=== PATIENT | male | born 1940 | race Caucasian/White ===

== ENCOUNTER 2019-07-14 07:21 | Inpatient (IN) | payer MEDICARE, BC ==
[~2019-07-14 07:21] MED LIST: Buffered Lidocaine 1% SYRIN* 1 ML/SYRINGE INTRADERM ONE; Lactated Ringers 1000 ML Bag* 1,000 ML IV SCH
--- OUTSIDE RECORDS SUMMARY | 2019-07-14 07:25 | XMS REPORT | Continuity of Care Document ---
:1940 External Reference #:[id number] Author Name Cathy Gilliland Care Team Providers Name Role Phone Benjamin Gutierrez MD Care Team Information Manager Performance Improvement [phone] Care Team Information Manager Performance Improvement [phone] Matthew Parkinson Care Team Information Manager Performance Improvement [phone] - Adult Care Team Information Manager Performance Improvement [phone] Reconstructive Orthopaedic Surgery Problems Active Problems Provider Date Benign essential hypertension Miller Griffith MD Onset: 11/30/2005 Aneurysm of thoracic aorta Vita Hawthorne MD Onset: 12/16/2013 Paroxysmal ventricular tachycardia Vita Hawthorne MD Onset: 12/16/2013 Paroxysmal atrial fibrillation Vita Hawthorne MD Onset: 12/22/2014 Note: 2014 Essential hypertension Daysi Hardwick, RN [place] [employer] Onset: 12/29/2015 Social History Type Date Description Comments Sex Unknown Tobacco Use Start: Unknown Never Smoked Cigarettes quitted 30yr ago, smoking 20 yrsX 1ppd ETOH Use Consumes liquor 2 times 2-3 beers/wine per day during social events 2-3 shots of vodhka/whisky qHS Tobacco Use Start: Unknown End: Patient is a former Unknown smoker Smoking Status Reviewed: 06/19/19 Patient is a former smoker Enjoy Exercising Enjoys Exercising Exercise Type/Frequency Exercises regularly Not as active as he was due to left ankle pain. Allergies, Adverse Reactions, Alerts Active Allergies Reaction Severity Comments Date Coumadin rash 12/16/2013 Inactive Allergies NKDA 12/21/2005 Medications Active Medications SIG Qnty Indications Ordering Provider Date Amlodipine/Olmesarta one tab daily for 90tabs I10 Daysi Hardwick 2018 n Medoxomil blood pressure C, RN [place] 5-20mg Tablets Metoprolol Succinate Take 1 Tablet AT 90tabs I48.2 Daysi Hardwick 2016 ER Bedtime C, RN MS VICKERS 50mg Tablets ER 24HR Pradaxa Take 1 Capsule 180caps I48.1 Daysi Hardwick 12/22/2014 150mg Twice Daily C, RN [place] Capsules I48.2 History Medications Amlodipine Besylate 1 by mouth every day 90tabs I10 Daysi Hardwick 2018 - Edison RN MS VICKERS 03/25/2019 5mg Tablets Boostrix ,5 cubic centimeters, .500ml Z23 Daysi Hardwick 01/09/2019 - intramuscular x 1 C, RN [place] V[place] 03/05/2019 5-2.5-18.5LF-mcg/0. injection 5 Suspension Medications Administered in Office Medication SIG Qnty Indications Ordering Provider Date Depo Medrol 20 MG Miller Griffith MD 11/29/2000 Injection Immunizations CPT Code Status Date Vaccine Lot # [id number] Given 02/09/2019 Tdap (Adacel) Ages 7 And Above Only 27458 Given 01/09/2019 Pneumococcal 23 Immunization Adult Or [id number] Immunosuppressed Patient 12527 Given 07/11/2018 Influenza Vac, Quadrivalent, Split, 0.5mL [id number] Dosage, Im Use 81097 Given 07/12/2017 Influenza Vac, Quadrivalent, Split, 0.5mL [id number] Dosage, Im Use 61135 Given 09/02/2016 Influenza Vac, Quadrivalent, Split, 0.5mL Dosage, Im Use [id number] Given 07/29/2015 Fluzone Trivalent Immunization 04213 Given 12/22/2014 Prevnar 13 Pneumococal Conjugate Vaccine [id number] 32531 Given 10/02/2004 Afluria Or Fluvirin Flu Vac Intramuscular Vital Signs Date Vital Result Comment 06/19/2019 9:53am Weight 270.00 lb Heart Rate 101 /min 72 BP Systolic 104 mmHg BP Diastolic 69 mmHg Height 72 inches 6'0" BMI (Body Mass Index) 36.6 kg/m2 04/03/2019 12:58pm Weight 276.25 lb Heart Rate 81 /min BP Systolic 114 mmHg BP Diastolic 66 mmHg Height 72 inches 6'0" BMI (Body Mass Index) 37.5 kg/m2 Results Test Date Facility Test Result H/L Range Note CBC with Auto Diff-fcmg 06/19/2019 [facility] WBC 5.8 K/uL 4.1-11.0 RBC 3.53 M/uL Low 4.60-6.10 Hemoglobin 12.2 gm/dL Low 13.5-18.0 Hematocrit 36.0 % Low 41.0-53.0 MCV 101.9 fL High 80.0-97.0 MCH 34.6 pg High 27.0-32.0 MCHC 34.0 g/dL 32.0-36.0 RDW 14.3 % 11.5-14.5 PLT Count 196 K/ul 140-400 MPV 8.0 FL 7.1-10.7 Neutrophil 65.3 % 35.0-75.0 Lymphocyte 21.7 % 16.0-52.0 Monocyte 10.6 % High 2.0-10.0 Eosinophil 1.4 % 0.0-5.0 Basophil 1.0 % 0.0-4.0 Abs Neutrophils 3.8 K/uL 2.1-8.0 Abs Lymphocytes 1.3 K/uL 0.8-5.5 Abs Monocytes 0.6 K/uL 0.1-1.0 Abs Eosinophils 0.1 K/uL 0.0-0.5 Abs Basophils 0.1 K/uL 0.0-0.3 Comprehensive Met Panel-[facility]CMG 06/19/2019 [facility] Sodium 141 mmol/L 135- 146 1 Potassium 4.5 mmol/L 3.5-5.2 Chloride# 104 mmol/L 97-110 2 Carbon Dioxide 27 mmol/L 24-34 Calcium 9.3 mg/dL 8.5-10.5 3 Glucose 97 mg/dL 70-105 BUN 23 mg/dL 6-26 Creatinine 1.1 mg/dL 0.5-1.4 Total Protein 6.2 g/dL 6.0-8.0 Albumin 4.1 g/dL 3.6-4.9 Globulin 2.1 g/dL 2.0-3.5 A/G Ratio 2.0 Ratio 1.0-2.2 Total Bilirubin 1.0 mg/dL 0.1-1.3 Alkaline Phosphatase 82 U/L 24-140 Alt 37 U/L 3-42 Ast 27 U/L 8-42 Anion Gap 10 mmol/L 5-15 4 Female Egfr 46 Low >60 5 Male Egfr 61 >60 6 Laboratory test 06/19/2019 [facility] PSA 3.150 ng/mL 0.000-4.000 7 finding Hemoglobin A1c 06/19/2019 [facility] Hemoglobin A1c 6.4 % High 4.1-5.9 Estimated Average Glucose Calc 137 mg/dL 71-140 Laboratory test finding 06/19/2019 [facility] Magnesium 1.7 mg/dL 1.5-2.7 Comprehensive Met Panel-[facility]CMG 03/24/2019 [facility] Sodium 140 mmol/L 135- 146 8, 9 Potassium 4.8 mmol/L 3.5-5.2 Chloride# 105 mmol/L 97-110 10 Carbon Dioxide 28 mmol/L 24-34 Calcium 9.2 mg/dL 8.5-10.5 11 Glucose 128 mg/dL High 70-105 BUN 22 mg/dL 6-26 Creatinine 0.8 mg/dL 0.5-1.4 Total Protein 6.3 g/dL 6.0-8.0 Albumin 4.1 g/dL 3.6-4.9 Globulin 2.2 g/dL 2.0-3.5 A/G Ratio 1.9 Ratio 1.0-2.2 Total Bilirubin 1.1 mg/dL 0.1-1.3 Alkaline Phosphatase 105 U/L 24-140 Alt 32 U/L 3-42 Ast 30 U/L 8-42 Anion Gap 7 mmol/L 5-15 12 Female Egfr 69 >60 13 Male Egfr 85 >60 14 Hemoglobin A1c 03/24/2019 [facility] Hemoglobin A1c 5.9 % 4.1-5.9 Estimated Average Glucose Calc 123 mg/dL 71-140 CBC with Auto Diff-fcmg 03/24/2019 [facility] WBC 4.5 K/uL 4.1-11.0 RBC 3.99 M/uL Low 4.60-6.10 Hemoglobin 13.7 gm/dL 13.5-18.0 Hematocrit 39.8 % Low 41.0-53.0 MCV 99.8 fL High 80.0-97.0 MCH 34.4 pg High 27.0-32.0 MCHC 34.5 g/dL 32.0-36.0 RDW 13.5 % 11.5-14.5 PLT Count 186 K/ul 140-400 MPV 8.0 FL 7.1-10.7 Neutrophil 53.9 % 35.0-75.0 Lymphocyte 30.3 % 16.0-52.0 Monocyte 11.8 % High 2.0-10.0 Eosinophil 2.7 % 0.0-5.0 Basophil 1.3 % 0.0-4.0 Abs Neutrophils 2.4 K/uL 2.1-8.0 Abs Lymphocytes 1.4 K/uL 0.8-5.5 Abs Monocytes 0.5 K/uL 0.1-1.0 Abs Eosinophils 0.1 K/uL 0.0-0.5 Abs Basophils 0.1 K/uL 0.0-0.3 Hemoglobin A1c 01/09/2019 [place] Hemoglobin A1c 6.2 % High 4.1-5.9 Estimated Average Glucose Calc 131 mg/dL 71-140 Comprehensive Met Panel-FCMG 01/09/2019 [place] Sodium 142 mmol/L 135- 146 15 Potassium 4.4 mmol/L 3.5-5.2 Chloride# 108 mmol/L 97-110 16 Carbon Dioxide 25 mmol/L 24-34 Glucose 119 mg/dL High 70-105 BUN 22 mg/dL 6-26 Creatinine 0.8 mg/dL 0.5-1.4 Calcium 9.5 mg/dL 8.5-10.2 Total Protein 6.2 g/dL 6.0-8.0 Albumin 4.4 g/dL 3.6-4.9 Globulin 1.8 g/dL Low 2.0-3.5 A/G Ratio 2.4 Ratio High 1.0-2.2 Total Bilirubin 0.7 mg/dL 0.1-1.3 Alkaline Phosphatase 108 U/L 24-140 Alt 31 U/L 3-42 Ast 27 U/L 8-42 Anion Gap 9 mmol/L 5-15 17 Rox Egfr >60 >60 18 Non Rox Egfr >60 >60 19 Lipid 01/09/2019 [place] Cholesterol 163 mg/dL 50-199 Triglycerides 68 mg/dL 30-200 HDL 59 mg/dL 29-71 20 Chol/ HDL Ratio 2.8 ratio Low 4.0-6.7 VLDL 14 mg/dL 2-29 LDL (Calc) 91 mg/dL 20 21 1 Updated reference range on new analyzer 2 Updated reference range on new analyzer 3 Updated reference range 02-11-2019 4 Updated Reference Range 5 Concerning GFR Guidelines for Americans: Normal function or mild renal disease, if clinically at risk: >/= 60 mL/min Moderately decreased: 30-59 Severely decreased: 15-29 Renal failure: <15 There is reduced accuracy above 60ml/min/1.73 m squared, but the numeric value may be clinically useful in the near 60 range 6 Concerning GFR Guidelines: Normal function or mild renal disease, if clinically at risk: >/= 60 mL/min Moderately decreased: 30-59 Severely decreased: 15-29 Renal failure: <15 There is reduced accuracy above 60ml/min/1.73 m squared, but the numeric value may be clinically useful in the near 60 range Glomerular Filtration Rate (GFR) is estimated based on the CKD-EPI equation, which assumes a steady state for creatinine as recommended by the National Kidney Disease Education Program in conjunction with the National Institutes of Health and the National Kidney Foundation. Clinical conditions in which it may be necessary to measure GFR by using clearance methods include extremes of age and body size, severe malnutrition or obesity, diseases of skeletal muscle, paraplegia or quadriplegia, vegetarian diet, rapidly changing kidney function, and calculation of the dose of potentially toxic drugs that are excreted by the kidneys. 7 Beginning 12/09/06 PSA values assayed at [facility] uses chemiluminescence methodology manufactured by [employer] for use on the DXI analyzer. Values obtained with different assay methods or kits can not be used interchangeably. Serum PSA measurement is not an absolute test for malignancy. The PSA value should be used in conjunction with information available from clinical evaluation and other diagnostic procedures. 8 This sample is drawn by:[facility]. 9 Updated reference range on new analyzer 10 Updated reference range on new analyzer 11 Updated reference range 02-11-2019 12 Updated Reference Range 13 Concerning GFR Guidelines for Americans: Normal function or mild renal disease, if clinically at risk: >/= 60 mL/min Moderately decreased: 30-59 Severely decreased: 15-29 Renal failure: <15 There is reduced accuracy above 60ml/min/1.73 m squared, but the numeric value may be clinically useful in the near 60 range 14 Concerning GFR Guidelines: Normal function or mild renal disease, if clinically at risk: >/= 60 mL/min Moderately decreased: 30-59 Severely decreased: 15-29 Renal failure: <15 There is reduced accuracy above 60ml/min/1.73 m squared, but the numeric value may be clinically useful in the near 60 range Glomerular Filtration Rate (GFR) is estimated based on the CKD-EPI equation, which assumes a steady state for creatinine as recommended by the National Kidney Disease Education Program in conjunction with the National Institutes of Health and the National Kidney Foundation. Clinical conditions in which it may be necessary to measure GFR by using clearance methods include extremes of age and body size, severe malnutrition or obesity, diseases of skeletal muscle, paraplegia or quadriplegia, vegetarian diet, rapidly changing kidney function, and calculation of the dose of potentially toxic drugs that are excreted by the kidneys. 15 Updated reference range on new analyzer 16 Updated reference range on new analyzer 17 Updated Reference Range 18 Concerning GFR Guidelines for Americans: Normal function or mild renal disease, if clinically at risk: >/= 60 mL/min Moderately decreased: 30-59 Severely decreased: 15-29 Renal failure: <15 19 Concerning GFR Guidelines: Normal function or mild renal disease, if clinically at risk: >/= 60 mL/min Moderately decreased: 30-59 Severely decreased: 15-29 Renal failure: <15 Glomerular Filtration Rate (GFR) is estimated based on the MDRD equation, which assumes a steady state for creatinine as recommended by the National Kidney Disease Education Program in conjunction with the National Institutes of Health and the National Kidney Foundation. Clinical conditions in which it may be necessary to measure GFR by using clearance methods include extremes of age and body size, severe malnutrition or obesity, diseases of skeletal muscle, paraplegia or quadriplegia, vegetarian diet, rapidly changing kidney function, and calculation of the dose of potentially toxic drugs that are excreted by the kidneys. 20 Per NCEP ATP III Guidelines: Results lower than 40 mg/dL are suggestive of increased risk for coronary artery disease. Results > or = to 60 mg/dL are considered a negative risk factor. 21 Per NCEP ATP III Guidelines: Normal Population <130 Patients with medical conditions: CHD/DM Optimal: <100 Borderline high: 130-159 High: 160-189 Very high: >189 Procedures Date Code Description Status 06/19/2019 02516 ECHO Transthoracis 2D W Spectral Doppler Completed 06/19/2019 27478 Electrocardiogram Complete Completed 02/23/2015 18307409 Colonoscopy Completed 01/05/2010 [id number] Colonoscopy Completed Medical Devices Description No Information Available Encounters Type Date Location Provider Dx Diagnosis Office Visit 06/19/2019 Daysi Gurrola, Z01.818 Encounter for other 10:20a RN [place] [employer] preprocedural examination I34.0 Nonrheumatic mitral (valve) insufficiency I10 Essential (primary) hypertension I48.1 Persistent atrial fibrillation E66.9 Obesity, unspecified Z12.5 Encounter for screening for malignant neoplasm of prostate R73.01 Impaired fasting glucose Z68.36 Body mass index (BMI) 36.0-36.9, adult Office Visit 04/03/2019 1:00p Daysi Gurrola I10 Essential ( primary) RN [facility] hypertension R73.01 Impaired fasting glucose Office Visit 03/05/2019 8:20a Daysi Gurrola, E66.9 Obesity, unspecified RN MS [facility] I10 Essential (primary) hypertension I48.2 Chronic atrial fibrillation M25.551 Pain in RIGHT hip M25.559 Pain in unspecified hip Z68.37 Body mass index (BMI) 37.0-37.9, adult Office Visit 01/09/2019 8:20a Daysi Gurrola, Z00.00 Encntr for general RN [place] [employer] adult medical exam w/o abnormal findings R73.01 Impaired fasting glucose I10 Essential (primary) hypertension M25.551 Pain in RIGHT hip E55.9 Vitamin D deficiency, unspecified Z23 Encounter for immunization D64.9 Anemia, unspecified Z13.31 Encounter for screening for depression Z68.37 Body mass index (BMI) 37.0-37.9, adult Assessments Date Code Description Provider 06/19/2019 I10 Essential (primary) hypertension [facility] 06/19/2019 Z01.818 Encounter for other preprocedural Dayis Hardwick RN [employer] examination 06/19/2019 I34.0 Nonrheumatic mitral (valve) [facility] insufficiency 06/19/2019 I34.0 Nonrheumatic mitral (valve) Daysi Hardwick RN [employer] insufficiency 06/19/2019 I48.1 Persistent atrial fibrillation [facility] 06/19/2019 I10 Essential (primary) hypertension Daysi Hardwick, RN [facility] 06/19/2019 I48.1 Persistent atrial fibrillation Daysi Hardwick, RN [facility] 06/19/2019 E66.9 Obesity, unspecified Daysi Hardwick, RN [facility] 06/19/2019 Z12.5 Encounter for screening for malignant Daysi Hardwick, PRICE [facility] neoplasm of prostate 06/19/2019 R73.01 Impaired fasting glucose Daysi Hardwick, PRICE [facility] 06/19/2019 Z68.36 Body mass index (BMI) 36.0-36.9, Daysi Hardwick, RN [facility] adult 06/19/2019 I34.0 Nonrheumatic mitral (valve) [facility] insufficiency 06/19/2019 I10 Essential (primary) hypertension [facility] 06/19/2019 Z12.5 Encounter for screening for malignant [facility] neoplasm of prostate 06/19/2019 R73.01 Impaired fasting glucose [facility] 06/19/2019 I48.1 Persistent atrial fibrillation [facility] 04/03/2019 I10 Essential (primary) hypertension Daysi Hardwick RN [facility] 04/03/2019 R73.01 Impaired fasting glucose Daysi Hardwick, PRICE [facility] 03/24/2019 D64.9 Anemia, unspecified Rosetta Yarbrough MD 03/24/2019 I10 Essential (primary) hypertension [facility] 03/24/2019 I10 Essential (primary) hypertension Rosetta Yarbrough MD 03/24/2019 R73.01 Impaired fasting glucose [facility] 03/24/2019 R73.01 Impaired fasting glucose Rosetta Yarbrough MD 03/24/2019 Z68.37 Body mass index (BMI) 37.0-37.9, [facility] adult 03/24/2019 Z68.37 Body mass index (BMI) 37.0-37.9, Rosetta Yarbrough MD adult 03/24/2019 D64.9 An[facility], [facility] 03/05/2019 E66.9 Obesity, unspecified Daysi Hardwick, RN [facility] 03/05/2019 I10 Essential (primary) hypertension Daysi Hardwick RN [facility] 03/05/2019 I48.2 Chronic atrial fibrillation Daysi Hardwick, PRICE [facility] 03/05/2019 M25.551 Pain in RIGHT hip Daysi Hardwick, PRICE [facility] 03/05/2019 M25.559 Pain in unspecified hip Daysi Hardwick, PRICE [facility] 03/05/2019 Z68.37 Body mass index (BMI) 37.0-37.9, Daysi Hardwick, PRICE [facility] adult 01/09/2019 Z00.00 Encounter for general adult medical Daysi Hardwick RN [facility] examination without abno 01/09/2019 I10 Essential (primary) hypertension [facility] 01/09/2019 R73.01 Impaired fasting glucose Daysi Hardwick RN [facility] 01/09/2019 I10 Essential (primary) hypertension Daysi Hardwick RN [facility] 01/09/2019 M25.551 Pain in RIGHT hip Daysi Hardwick RN [facility] 01/09/2019 E55.9 Vitamin D deficiency, unspecified Daysi Hardwick, PRICE [facility] 01/09/2019 Z23 Encounter for immunization Daysi Hardwick RN [facility] 01/09/2019 D64.9 Anemia, unspecified Daysi Hardwick, PRICE [facility] 01/09/2019 Z13.31 Encounter for screening for Daysi Hardwick RN [facility] depression 01/09/2019 Z68.37 Body mass index (BMI) 37.0-37.9, Daysi Hardwick, PRICE [facility] adult 01/09/2019 R73.01 Impaired fasting glucose [facility] Plan of Treatment 06/19/2019 - Daysi Hardwick, PRICE [facility] Encounter for other preprocedural obiscxjdaybW67.0 Nonrheumatic mitral (valve) rxiexibtdrjxkJ65 Essential (primary) vigjhuralqrrM86.1 Persistent atrial fibrillationComments: SEES CARDIOLOGY ON 07/09 TO REVIEW DIRECTIONS FOR ANTICOAGULATION PRE AND POST OPE66.9 Obesity, qhopftjnpytM59.5 Encounter for screening for malignant neoplasm of bofsvdktR71.01 Impaired fasting vuwnmlcG99.36 Body mass index (BMI) 36.0-36.9, adult Functional Status Description No Information Available Mental Status Description No Information Available Referrals Refer to Reason for Referral Status Appt Date Aisha Alex DR CONSULT FOR RT HIP PAIN, PLEASE SEND Received Complete XRAY REPORT 03/05/19- FAXED -DS 03/16 SPOKE TO JAMIE AT OFFICE- REFERRAL WAS RECEIVED AND THEY WILL NOTIFY US WHEN PT IS SCHEDULED..TW 03/20 SPOKE TO JAMIE AT OFFICE- THEY HAVE REFERRAL BUT PT HAS NOT BEEN SCHEDULED YET AND SHE IS NOT SURE WHY- LMOM FOR PT TO CALL ME TO ADVISE HIM TO CALL OFFICE FOR APPT..TW 03/20-PT CALLED BACK AND GIVEN THE INFO TO [place] [address] [phone]
--- OUTSIDE RECORDS SUMMARY | 2019-07-14 07:25 | XMS REPORT | Continuity of Care Document ---
:1940 External Reference #:[id number] Author Name Cathy Gilliland Care Team Providers Name Role Phone Benjamin Gutierrez MD Care Team Information Pressure Tester Operator [phone] Care Team Information Pressure Tester Operator [phone] Matthew Parkinson Care Team Information Pressure Tester Operator [phone] - Adult Care Team Information Pressure Tester Operator [phone] Reconstructive Orthopaedic Surgery Problems Active Problems Provider Date Benign essential hypertension Miller Griffith MD Onset: 11/30/2005 Aneurysm of thoracic aorta Vita Hawthorne MD Onset: 12/16/2013 Paroxysmal ventricular tachycardia Vita Hawthorne MD Onset: 12/16/2013 Paroxysmal atrial fibrillation Vita Hawthorne MD Onset: 12/22/2014 Note: 2014 Essential hypertension Daysi Hardwick, RN MS INTERIOR DESIGN COORDINATOR Onset: 12/29/2015 Social History Type Date Description [...] CPT Code Status Date Vaccine Lot # [id number] Given 02/09/2019 Tdap (Adacel) Ages 7 And Above Only 21921 Given 01/09/2019 Pneumococcal 23 Immunization Adult Or [id number] Immunosuppressed Patient 04388 Given 07/11/2018 Influenza Vac, Quadrivalent, Split, 0.5mL [id number] Dosage, Im Use 42432 Given 07/12/2017 Influenza Vac, Quadrivalent, Split, 0.5mL [id number] Dosage, Im Use 23861 Given 09/02/2016 Influenza Vac, Quadrivalent, Split, 0.5mL Dosage, Im Use Q2038 Given 07/29/2015 Fluzone Trivalent Immunization 93770 Given 12/22/2014 Prevnar 13 Pneumococal Conjugate Vaccine [id number] 08789 Given 10/02/2004 Afluria Or Fluvirin Flu Vac [...] Basophils 0.1 K/uL 0.0-0.3 Hemoglobin A1c 01/09/2019 [facility] Hemoglobin A1c 6.2 % High 4.1-5.9 Estimated Average Glucose Calc 131 mg/dL 71-140 Comprehensive Met Panel-FCMG 01/09/2019 [facility] Sodium 142 mmol/L 135- 146 15 Potassium [...] Rox Egfr >60 >60 19 Lipid 01/09/2019 [facility] Cholesterol 163 mg/dL 50-199 Triglycerides 68 mg/dL [...] 7 Beginning 12/09/06 PSA values assayed at [facility] uses chemiluminescence methodology manufactured by [employer] [place] for use on the DXI analyzer. Values [...] >189 Procedures Date Code Description Status 06/19/2019 91698 ECHO Transthoracis 2D W Spectral Doppler Completed 02/23/2015 50480776 Colonoscopy Completed 01/05/2010 [id number] Colonoscopy Completed Medical Devices Description No Information Available Encounters Type Date Location Provider Dx Diagnosis Office Visit 04/03/2019 Daysi Gurrola, I10 Essential (primary) 1:00p RN [facility] hypertension R73.01 Impaired fasting glucose Office Visit 03/05/2019 8:20a Daysi Gurrola, E66.9 Obesity, unspecified RN [facility] I10 Essential (primary) hypertension I48.2 Chronic atrial fibrillation M25.551 Pain in RIGHT hip M25.559 Pain in unspecified hip Z68.37 Body mass index (BMI) 37.0-37.9, adult Office Visit 01/09/2019 8:20a Daysi Gurrola, Z00.00 Encntr for general RN [facility] adult medical exam w/o abnormal findings R73.01 Impaired fasting glucose I10 Essential (primary) hypertension M25.551 Pain in RIGHT hip E55.9 Vitamin D deficiency, unspecified Z23 Encounter for immunization D64.9 Anemia, unspecified Z13.31 Encounter for screening for depression Z68.37 Body mass index (BMI) 37.0-37.9, adult Assessments Date Code Description Provider 06/19/2019 I10 Essential (primary) hypertension [facility] 06/19/2019 Z01.818 Encounter for other preprocedural Daysi Hardwick RN [facility] examination 06/19/2019 I34.0 Nonrheumatic mitral (valve) [facility] insufficiency 06/19/2019 I34.0 Nonrheumatic mitral (valve) Daysi Hardwick RN [facility] insufficiency 06/19/2019 I48.1 Persistent atrial fibrillation [facility] 06/19/2019 I10 Essential (primary) hypertension Daysi Hardwick RN [facility] 06/19/2019 I48.1 Persistent atrial fibrillation Daysi Hardwick, PRICE [facility] 06/19/2019 E66.9 Obesity, unspecified Daysi Hardwick, RN [facility] 06/19/2019 Z12.5 Encounter for screening for malignant Daysi Hardwick RN [facility] neoplasm of prostate 06/19/2019 R73.01 Impaired fasting glucose Daysi Hardwick RN [facility] 06/19/2019 Z68.36 Body mass index (BMI) 36.0-36.9, Daysi Hardwick, RN [facility] adult 06/19/2019 I34.0 [facility]he[facility] insufficiency 06/19/2019 I10 Essential (primary) hypertension [facility] 06/19/2019 Z12.5 Encounter for screening for malignant [facility] neoplasm of prostate 06/19/2019 R73.01 Impaired fasting glucose [facility] 06/19/2019 I48.1 Persistent atrial fibrillation [facility] 04/03/2019 I10 Essential (primary) hypertension Daysi Hardwick, RN [facility] 04/03/2019 R73.01 Impaired fasting glucose Daysi Hardwick, RN [facility] 03/24/2019 D64.9 Anemia, unspecified Rosetta Yarbrough MD 03/24/2019 I10 Essential (primary) [place] [facility] 03/24/2019 I10 Essential (primary) hypertension Rosetta Yarbrough MD 03/24/2019 R73.01 Impaired fasting glucose [facility] [place] [facility] 03[place]24/2019 R73.01 Impaired fasting glucose Rosetta Yarbrough MD 03/24/2019 Z68.37 Body mass index (BMI) 37.0-37.9, [facility] adult 03/24/2019 Z68.37 Body mass index (BMI) 37.0-37.9, Rosetta Yarbrough MD adult 03/24/2019 D64.9 Anemia, unspecified [facility] 03/05/2019 E66.9 Obesity, unspecified Daysi Hardwick, RN [facility] 03/05/2019 I10 Essential (primary) hypertension Daysi Hardwick, RN [facility] 03/05/2019 I48.2 Chronic atrial fibrillation Daysi Hardwick, RN [facility] 03/05/2019 M25.551 Pain in RIGHT hip Daysi Hardwick, RN [facility] 03/05/2019 M25.559 Pain in unspecified hip Daysi Hardwick, RN [facility] 03/05/2019 Z68.37 Body mass index (BMI) 37.0-37.9, Daysi Hardwick, RN [facility] adult 01/09/2019 Z00.00 Encounter for general adult medical Daysi Hardwick, PRICE [facility] examination without abno 01/09/2019 I10 Essential (primary) [place] [facility] [place] [place] [facility] 01/09/2019 R73.01 Impaired fasting glucose Daysi Hardwick, PRICE [facility] 01/09/2019 I10 Essential (primary) hypertension Daysi Hardwick, PRICE [facility] 01/09/2019 M25.551 Pain in RIGHT hip Daysi Hardwick, PRICE [facility] 01/09/2019 E55.9 Vitamin D deficiency, unspecified Daysi Hardwick, PRICE [facility] 01/09/2019 Z23 Encounter for immunization Daysi Hardwick RN [facility] 01/09/2019 D64.9 Anemia, unspecified Daysi Hardwick, PRICE [facility] 01/09/2019 Z13.31 Encounter for screening for Daysi Hardwick RN [facility] depression 01/09/2019 Z68.37 Body mass index (BMI) 37.0-37.9, Daysi Hardwick, PRICE [facility] adult 01/09/2019 R73.01 Impaired fasting glucose [facility] Plan of Treatment 06/19/2019 - [facility] Hardwick[facility] Encounter for other preprocedural hqpbnnnugmkK27.0 Nonrheumatic mitral (valve) insufficiencyNew Orders:ECHO Cardiogram, Scheduled: 06/19/19I10 Essential (primary) jtiacytantfoZ45.1 Persistent atrial fibrillationNew Orders:Holter Monitor 24 Hour, Scheduled: 06/24/19Comments:[facility] CARDI[facility] ON 07/09 TO REVIEW DIRECTIONS FOR ANTICOAGULATION PRE AND POST OPE66.9 Obesity, yxvtgenkedrD65.5 Encounter for screening for malignant neoplasm of aylyhvjnG99.01 Impaired fasting irbvbacM45.36 Body mass index (BMI) 36.0-36.9, adult Functional [...] AND GIVEN THE INFO TO CALL TO SCHEDULE-[facility] [place] [address] [phone]
--- OUTSIDE RECORDS SUMMARY | 2019-07-14 07:25 | XMS REPORT | Continuity of Care Document ---
:1940 External Reference #:[id number] Author Name Daysi Hardwick RN MS GEOPHYSICAL OBSERVER Address [address] [place] [id number] Care Team Providers Name Role Phone Benjamin Gutierrez MD Care Team Information Rn Radiation Oncology [phone] Care Team Information Rn Radiation Oncology [phone] Matthew Parkinson Care Team Information Rn Radiation Oncology [phone] - Adult Care Team Information Rn Radiation Oncology [phone] Reconstructive Orthopaedic Surgery Problems Active Problems Provider Date Benign essential hypertension Miller Griffith MD Onset: 11/30/2005 Aneurysm of thoracic aorta Vita Hawthorne MD Onset: 12/16/2013 Paroxysmal ventricular tachycardia Vita Hawthorne MD Onset: 12/16/2013 Paroxysmal atrial fibrillation Vita Hawthorne MD Onset: 12/22/2014 Note: 2014 Essential hypertension Daysi Hardwick RN MS GEOPHYSICAL OBSERVER Onset: 12/29/2015 Social History Type Date Description [...] Hardwick 2016 ER Bedtime C, RN MS RANCHO 50mg Tablets ER 24HR Pradaxa Take 1 Capsule 180caps I48.1 Daysi Hardwick 12/22/2014 150mg Twice Daily C, RN MS RANCHO Capsules I48.2 History Medications Amlodipine Besylate 1 by mouth every day 90tabs I10 Daysi Hardwick 2018 - Edison RN MS VICKERS 03/25/2019 5mg Tablets Boostrix ,5 cubic centimeters, .500ml Z23 Daysi Hardwick 01/09/2019 - intramuscular x 1 PRICE Hogan MS 03/05/2019 5-2.5-18.5LF-mcg/0. injection 5 Suspension Medications Administered in Office Medication SIG Qnty Indications Ordering Provider Date Depo Medrol 20 MG Miller Griffith MD 11/29/2000 Injection Immunizations CPT Code Status Date Vaccine Lot # [id number] Given 02/09/2019 Tdap (Adacel) Ages 7 And Above Only 99596 Given 01/09/2019 Pneumococcal 23 Immunization Adult Or [id number] Immunosuppressed Patient 53181 Given 07/11/2018 Influenza Vac, Quadrivalent, Split, 0.5mL [id number] Dosage, Im Use 22348 Given 07/12/2017 Influenza Vac, Quadrivalent, Split, 0.5mL [id number] Dosage, Im Use 53534 Given 09/02/2016 Influenza Vac, Quadrivalent, Split, 0.5mL Dosage, Im Use Q2038 Given 07/29/2015 Fluzone Trivalent Immunization 37887 Given 12/22/2014 Prevnar 13 Pneumococal Conjugate Vaccine [id number] 31953 Given 10/02/2004 Afluria Or Fluvirin Flu Vac [...] Egfr 61 >60 6 Laboratory test 06/19/2019 [facility] PSA 3.150 ng/mL 0.000-4.000 7 finding Hemoglobin A1c 06/19/2019 [facility] Hemoglobin A1c 6.4 % High 4.1-5.9 Estimated Average Glucose Calc 137 mg/dL 71-140 Laboratory test finding 06/19/2019 [place] Magnesium 1.7 mg/dL 1.5-2.7 Comprehensive Met Panel-FCMG [...] Egfr 85 >60 14 Hemoglobin A1c 03/24/2019 [place] Hemoglobin A1c 5.9 % 4.1-5.9 Estimated Average [...] Basophils 0.1 K/uL 0.0-0.3 Hemoglobin A1c 01/09/2019 [place] Hemoglobin A1c 6.2 % High 4.1-5.9 Estimated Average Glucose Calc 131 mg/dL 71-140 Comprehensive Met Panel-FCMG 01/09/2019 [place] Sodium 142 mmol/L 135- 146 15 Potassium [...] Rox Egfr >60 >60 19 [facility] 163 mg/dL 50-199 Triglycerides 68 mg/dL 30-200 HDL 59 mg/dL 29-71 20 Chol/ HDL Ratio 2.8 ratio Low 4.0-6.7 VLDL 14 mg/dL LDL (Calc) 91 mg/dL 20-99 21 1 Updated reference range on new [...] 7 Beginning 12/09/06 PSA values assayed at [facility] [employer] uses chemiluminescence methodology manufactured by [employer] [place] for use on the DXI analyzer. Values [...] >189 Procedures Date Code Description Status 06/19/2019 81146 ECHO Transthoracis 2D W Spectral Doppler Completed 06/19/2019 97545 Electrocardiogram Complete Completed 02/23/2015 [id number] Colonoscopy Completed 01/05/2010 [id number] Colonoscopy Completed Medical Devices Description No Information Available Encounters Type Date Location Provider Dx Diagnosis Office Visit 04/03/2019 Daysi Gurrola, I10 Essential (primary) 1:00p RN [facility] hypertension R73.01 Impaired fasting glucose Office Visit 03/05/2019 8:20a Daysi Gurrola, E66.9 Obesity, unspecified RN [facility] I10 Essential (primary) hypertension I48.2 Chronic atrial fibrillation M25.551 Pain in RIGHT hip M25.559 Pain in unspecified hip Z68.37 Body mass index (BMI) 37.0-37.9, adult Office Visit 01/09/2019 8:20a Daysi Gurrola, Z00.00 Encntr for general RN [facility] adult medical exam w/o abnormal findings [...] Encounter for other preprocedural Daysi Hardwick RN [facility] examination 06/19/2019 I34.0 Nonrheumatic mitral (valve) [facility] insufficiency 06/19/2019 I34.0 Nonrheumatic mitral (valve) Daysi Hardwick RN [facility] insufficiency 06/19/2019 I48.1 Persistent atrial fibrillation [facility] 06/19/2019 I10 Essential (primary) hypertension Daysi Hardwick RN [facility] 06/19/2019 I48.1 Persistent atrial fibrillation Daysi Hardwick RN [facility] 06/19/2019 E66.9 Obesity, unspecified Daysi Hardwick, PRICE [facility] 06/19/2019 Z12.5 Encounter for screening for malignant Daysi Hardwick RN [facility] neoplasm of prostate 06/19/2019 R73.01 Impaired fasting glucose Daysi Hardwick, RN [facility] 06/19/2019 Z68.36 Body mass index (BMI) 36.0-36.9, Daysi Hardwick, RN [facility] adult 06/19/2019 I34.0 Nonrheumatic mitral (valve) [facility] insufficiency 06/19/2019 I10 Essential (primary) hypertension [facility] 06/19/2019 Z12.5 Encounter for screening for malignant [facility] neoplasm of prostate 06/19/2019 R73.01 Impaired fasting glucose [facility] 06/19/2019 I48.1 Persistent atrial fibrillation [facility] [place] [facility] 04/03/2019 I10 Essential (primary) hypertension Daysi Hardwick, PRICE [facility] 04/03/2019 R73.01 Impaired fasting glucose Daysi Hardwick, RN [facility] 03/24/2019 D64.9 Anemia, unspecified Rosetta Yarbrough MD 03/24/2019 I10 Essential (primary) hypertension [facility] 03/24/2019 I10 Essential (primary) hypertension Rosetta Yarbrough MD 03/24/2019 R73.01 Impaired fasting glucose [facility] [facility] 03/24/2019 R73.01 Impaired fasting glucose Rosetta Yarbrough MD 03/24/2019 Z68.37 Body mass index (BMI) 37.0-37.9, [facility] adult 03/24/2019 Z68.37 Body mass index (BMI) 37.0-37.9, Rosetta Yarbrough MD adult 03/24/2019 D64.9 Anemia, unspecified [facility] 03/05/2019 E66.9 Obesity, unspecified Daysi Hardwick, PRICE [facility] 03/05/2019 I10 Essential (primary) hypertension Daysi Hardwick, RN [facility] 03/05/2019 I48.2 Chronic atrial fibrillation Daysi Hardwick, RN [facility] 03/05/2019 M25.551 Pain in RIGHT hip Daysi Hardwick, RN [facility] 03/05/2019 M25.559 Pain in unspecified hip Daysi Hardwick, RN [facility] 03/05/2019 Z68.37 Body mass index (BMI) 37.0-37.9, Daysi Hardwick, RN [facility] adult 01/09/2019 Z00.00 Encounter for general adult medical Daysi Hardwick, RN [facility] examination without abno 01/09/2019 I10 Essential (primary) hypertension [facility] 01/09/2019 R73.01 Impaired fasting glucose Daysi Hardwick, PRICE [facility] 01/09/2019 I10 Essential (primary) hypertension Daysi Hardwick, RN [facility] 01/09/2019 M25.551 Pain in RIGHT hip Daysi Hardwick, RN [facility] 01/09/2019 E55.9 Vitamin D deficiency, unspecified Daysi Hardwick, PRICE [facility] 01/09/2019 Z23 Encounter for immunization Daysi Hardwick RN [facility] 01/09/2019 D64.9 Anemia, unspecified Daysi Hardwick, PRICE [facility] 01/09/2019 Z13.31 Encounter for screening for Daysi Hardwick, PRICE [facility] depression 01/09/2019 Z68.37 Body mass index (BMI) 37.0-37.9, Daysi Hardwick, RN [facility] adult 01/09/2019 R73.01 Impaired fasting glucose [facility] Plan of Treatment 06/19/2019 - Daysi Hardwick[facility] Encounter for other preprocedural uejzkuosmrhJ07.0 Nonrheumatic mitral (valve) nqquwudrdcfnyI49 Essential (primary) ixsahroefyusN30.1 Persistent atrial fibrillationNew Orders: Holter Monitor 24 Hour, Scheduled: 06/24/19Comments:[facility] C[facility] ON 07/09 TO REVIEW DIRECTIONS FOR ANTICOAGULATION PRE AND POST OPE66.9 Obesity, fcsfhbzdmnrA00.5 Encounter for screening for malignant neoplasm of mpewiyxpF50.01 Impaired fasting jbjmkufL54.36 Body mass index (BMI) 36.0-36.9, adult Functional Status Description No Information Available Mental Status Description No Information Available Referrals Refer to Reason for Referral Status Appt Date Aisha Alex DR CONSULT FOR RT HIP PAIN, PLEASE SEND Received Complete XRAY REPORT 5/23/19- FAXED -DS 03/16 SPOKE TO JAMIE AT [...] GIVEN THE INFO TO CALL TO SCHEDULE-LYNN Haq DR [place], [facility]87 [phone]
--- OUTSIDE RECORDS SUMMARY | 2019-07-14 07:25 | XMS REPORT | Continuity of Care Document ---
:1940 External Reference #:[id number] Author Name Aisha Alex M.D. (transmitted by agent of provider Micheal Clemente) Address [address] [address] Care Team Providers Name Role Phone Daysi Hardwick, INSOLE BEVELER - Family Care Team Information Genetics Teacher Problems Active Problems Provider Date Localized, primary osteoarthritis of the pelvic Aisha Alex M.D. Onset: region and thigh Social History Type Date Description Comments Sex Unknown ETOH Use Currently consumes alcohol 14 per week ETOH Use Drinks 1 Alcoholic Beverage Per Week Tobacco Use Start: Unknown End: Patient is a former smoker Unknown Smoking Status Reviewed: 07/06/19 Patient is a former smoker Exercise Type/Frequency Exercises sporadically Allergies, Adverse Reactions, Alerts Active Allergies Reaction Severity Comments Date Coumadin 03/30/2019 Medications Active Medications SIG Qnty Indications Ordering Provider Date Amlodipine/Olmesartan Daysi Hardwick, INSOLE BEVELER Medoxomil 5-20mg Tablets Losartan Potassium Daysi Hardwick, INSOLE BEVELER 50mg Tablets Metoprolol Succinate ER Daysi Hardwick, INSOLE BEVELER 50mg Tablets ER 24HR Pradaxa Daysi Hardwick, INSOLE BEVELER 150mg Capsules Medications Administered in Office Medication SIG Qnty Indications Ordering Provider Date Depomedrol 40MG Aisha Alex M.D. 04/27/2019 Injection Immunizations Description No Information Available Vital Signs Date Vital Result Comment 07/06/2019 9:32am Height 73 inches 6'1" Weight 269.00 lb Heart Rate 80 /min BP Systolic 142 mmHg BP Diastolic 90 mmHg Respiratory Rate 18 /min Body Temperature 97.9 F Pain Level 7 BMI (Body Mass Index) 35.5 kg/m2 04/27/2019 9:46am Height 73 inches 6'1" Weight 275.00 lb Heart Rate 74 /min BP Systolic 108 mmHg BP Diastolic 68 mmHg Respiratory Rate 12 /min Pain Level 2 BMI (Body Mass Index) 36.3 kg/m2 Results Test Date Facility Test Result H/L Range Note Xray 04/27/2019 Plant Breeder Scientist In House Inj/Aspir Major JT Or Bursa W/ <pending> US Procedures Date Code Description Status 04/27/2019 38185 Inj/Aspir Major JT Or Bursa W/ US Completed Medical Devices Description No Information Available Encounters Type Date Location Provider Dx Diagnosis Office Visit 03/30/2019 Orth[facility] Aisha Alex M25.551 Pain in right hip 2:[facility] M16.11 Unilateral primary osteoarthritis, right hip Assessments Date Code Description Provider 07/06/2019 M16.11 Unilateral primary osteoarthritis, right hip Aisha Alex M.D. 07/06/2019 M25.551 Pain in right hip Aisha Alex M.D. 04/27/2019 M25.551 Pain in right hip Aisha Alex M.D. 04/27/2019 M16.11 Unilateral primary osteoarthritis, right hip Aisha Alex M.D. 03/30/2019 M25.551 Pain in right hip Aisha Alex M.D. 03/30/2019 M16.11 Unilateral primary osteoarthritis, right hip Aisha Alex M.D. Plan of Treatment Future Appointment(s):07/27/2019 1:45 pm - [facility]/14/2019 7:30 am - Aisha Alex M.D. at [facility]/06/2019 - Aisha Alex M.D.M16.11 Unilateral primary osteoarthritis, right hipFollow up:Follow up: to the ORM25.551 Pain in right hip Functional Status Description No Information Available Mental Status Description No Information Available Referrals Description No Information Available
[2019-07-14] MEDS ORDERED: Buffered Lidocaine 1% SYRIN* 1 ML/SYRINGE INTRADERM ONE (07:56)
[2019-07-14] MEDS ORDERED: ceFAZolin 2 GM in NS PREMIX(*) 2 GM/100 ML BAG IVPB ONE (07:57)
[2019-07-14] MEDS ORDERED: ROPIVACAINE 5 MG/ML 30 ML BTL (0.5%) ONE ×2 (08:06→08:48)
[2019-07-14] MEDS ORDERED: Midazolam* 1 MG/ML 5 ML VIAL (5 MG) ONE (08:06)
[2019-07-14] MEDS ORDERED: Dexmedetomidine* 200 MCG/2 ML 2 ML VIAL ONE (08:06)
[2019-07-14] MEDS ORDERED: Bupivacaine 0.5% SDV PF* 30ML VIAL ONE (08:06)
[2019-07-14] MEDS ORDERED: Lidocaine 2% PF * 5 ML VIAL ONE ×4 (08:06→11:13)
[2019-07-14] MEDS ORDERED: Propofol* 10 MG/ML 20 ML BTL ONE (08:06)
[2019-07-14] MEDS ORDERED: KETAMINE HCL* 50 MG/ML 10 ML VIAL ONE (08:09)
[2019-07-14 08:32] LABS: Activated Partial Thrombo Time 33.2 seconds (26.0-38.0); INR 0.98 (0.82-1.09)
[2019-07-14] MEDS ORDERED: Rocuronium* 10 MG/ML VIAL ONE (08:44)
[2019-07-14] MEDS ORDERED: fentaNYL* 50 MCG/ML 2 ML VIAL (100 MCG VIAL) ONE (08:45)
[2019-07-14] MEDS ORDERED: Phenylephrine 40 MCG/ML SYRINGE ONE (09:53)
[2019-07-14] MEDS ORDERED: EPHEDrine (Pressors)* 50 MG/ML VIAL ONE (10:47)
[2019-07-14] MEDS ORDERED: Ondansetron INJ* 2 MG/ML VIAL IV PRN ×2 (10:50→13:03)
[2019-07-14] MEDS ORDERED: oxyCODONE TAB* 5 MG TAB PO PRN (10:50)
[2019-07-14] MEDS ORDERED: Naloxone* 0.4 MG/ML 1 ML VIAL IV PRN (10:50)
[2019-07-14] MEDS ORDERED: Acetaminophen TAB* 325 MG PO PRN ×2 (10:50→13:03)
[2019-07-14] MEDS ORDERED: Ketorolac INJ* 30 MG/ML 1 ML VIAL IV PRN (10:50)
[2019-07-14] MEDS ORDERED: HYDROmorphone INJ1* 1 MG/ML SYRINGE IV PRN (10:50)
[2019-07-14] MEDS ORDERED: Propofol* 500 MG/50 ML BTL ONE (11:18)
[2019-07-14] MEDS ORDERED: Ketorolac INJ* 30 MG/ML 1 ML VIAL ONE (12:34)
[2019-07-14] MEDS ORDERED: Morphine INJ* 2 MG/ML 1 ML SYRINGE (TWO MG - NEW SYRINGE VERSION) IV PRN (13:03)
[2019-07-14] MEDS ORDERED: diPHENhydraMINE IV* 50 MG/ML 1 ml VIAL (BENADRYL) IV PRN (13:03)
[2019-07-14] MEDS ORDERED: diPHENhydraMINE PO* 25 MG PO PRN (13:03)
[2019-07-14] MEDS ORDERED: Ondansetron ODT TAB* 4 MG PO PRN (13:03)
[2019-07-14] MEDS ORDERED: Magnesium Hydroxide LIQ* 30 ML UDC PO PRN (13:03)
[2019-07-14] MEDS ORDERED: Cyclobenzaprine TAB* 10 MG PO PRN (13:03)
[2019-07-14] MEDS: Lactated Ringers 1000 ML Bag* 1,000 ML IV SCH (14:34)
--- NOTE | 2019-07-14 15:12 | PN ---
Progress Note - Progress Note Date of Service: 07/14/19 - Post-op Note: Post-op: S/P right SHANDRA- Patient resting comfortably in bed. Denies pain at this time, no SOB or CP. He can actively DF/PF, sensation intact, 2+ DP pulses. He has not been out of bed with PT yet. Continue PT, and pain management. We appreciate medicine's psychosocial rehabilitation counselor and we will follow.
[2019-07-14] MEDS: oxyCODONE/Acetamin 5/325 MG* TAB PO PRN ×2 (16:07→20:29)
--- NOTE | 2019-07-14 16:16 | CONS ---
CC: Dr. Alex; Daysi Hardwick NP; Dr. Benjamin Palomino CONSULTATION REPORT: DATE OF CONSULT: 07/14/19 TIME OF EVALUATION: 01:15 p.m. REQUESTING PHYSICIAN: Dr. Alex. PRIMARY CARE PROVIDER: Daysi Hardwick NP. WIRE BRUSH OPERATOR: Dr. Benjamin Palomino, phone number [phone]; Dr. Abbe Pagan at [facility] in [place], [place], phone number [phone]. REASON FOR CONSULTATION: Management of comorbidities. HISTORY OF PRESENT ILLNESS: Mr. Miranda is a 78-year-old male with a past medical history of hypert ension, osteoarthritis, atrial fibrillation, thoracic aortic aneurysm, nonsustained ventricular tachy cardia, obesity with a BMI of 35.2, who was found to have advanced arthritis of the right hip with ch ronic pain. He failed conservative management with antiinflammatories, physial therapy, ultrasound-g uided injections, and continued to have 6/10 pain. So, at that point, Dr. Alex recommended right to dania hip arthroplasty that was performed today under spinal anesthesia with estimated blood loss less than 150 mL. The patient was seen and evaluated in the PACU while he is still recovering from anesthesia and he of fers no complaints at this time. As per nurse, the patient was snoring loudly initially when he was brought into the PACU, but the patient is not aware of any diagnosis of obstructive sleep apnea. PAST MEDICAL HISTORY: 1. Obesity with a BMI of 35.2. 2. Hypertension. 3. Atrial fibrillation, on anticoagulation with Pradaxa. 4. Osteoarthritis. 5. Aortic thoracic aneurysm. Last echocardiogram done on 06/22/19 showed mild dilatation of the asc ending aorta at 4.1 cm. 6. Nonsustained ventricular tachycardia in 2012, on beta-blockers since. PAST SURGICAL HISTORY: 1. Status post knee arthroscopy in 1986 and 1993. 2. 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 MEDICATION LIST: 1. Acetaminophen 500 mg p.o. daily as needed for pain. 2. Amlodipine/olmesartan 5/20 mg 1 tablet p.o. daily. 3. Vitamin C 500 mg p.o. daily. 4. Vitamin B12 1000 mcg p.o. daily. 5. Dabigatran 150 mg p.o. b.i.d. 6. Iron 370 mg p.o. at bedtime. 7. Metoprolol succinate 50 mg at bedtime. 8. Multivitamin 1 tablet p.o. daily. ALLERGIES: With WARFARIN, the patient had the rash. FAMILY HISTORY: The patient's father of a stroke when he was 92. Mother is 99 years old. SOCIAL HISTORY: The patient is retired. 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 Denies drug u se. He was a smoker 20 pack years, but he quit 30 years ago. He drinks 2 to 3 beers, wine in social events and 2 to 3 shots of vodka, whisky at bedtime. REVIEW OF SYSTEMS: A 14-point review of systems was performed and all the pertinent negative an posi tive findings on the HPI. PHYSICAL EXAMINATION: Vital Signs: Temperature 97.0, heart rate is 64, respiratory rate is 19, oxyg en saturation 95% on room air, blood pressure is 92/67. General: The patient is an obese elderly gen tleman, lying in bed in acute distress. HEENT: Pupils are equal. Moist mucous membranes. CVS: No rmal S1, S2. Regular rate and rhythm. Chest: Breath sounds present bilaterally with no added sounds . Abdomen: Obese, soft. Bowel sounds are present. Extremities: The patient has a clean dressing intact to his right hip and he is still recovering from anesthesia. So, sensation is not totally lexy k yet. Neuro: He is alert and oriented x3. Able to follow commands. ASSESSMENT AND PLAN: Mr. Miranda is a 78-year-old male with a past medical history of obesity, hype rtension, osteoarthritis, atrial fibrillation, on dabigatran, aortic thoracic aneurysm, nonsustained ventricular tachycardia, who presented for an elective right total hip arthroplasty and the [facility] service was consulted to help manage his commorientes. 1. Status post right total hip arthroplasty. Management will be as per ORTHO. 2. Hypertension. The patient is hypotensive at this time. We will resume his antihypertensives as tolerated and we prefer to give him metoprolol first as this will also manage his nonsustained ventri cular tachycardia. 3. Atrial fibrillation. The patient will be monitored on telemetry. We will resume the dabigatran when okay with Orthopedics. 4. Nonsustained ventricular tachycardia. We will continue to monitor on telemetry. 5. Probable obstructive sleep apnea. The patient is obese and was described to have severe snoring when he returned from surgery. I suspect the patient likely has obstructive sleep apnea. We will m onitor his oxygen saturation around the first 24 hours postop and he will need a sleep study as an ou tpatient. 6. DVT prophylaxis will be with dabigatran as per orthopedist. 7. Code status is full. TIME SPENT: Approximately 60 minutes were spent with patient interview, medical records review, and physical examination to complete this consultation. More than half of this time was spent face-to-fa ce with the patient in coordination of care. [id number]/[facility] #: [id number]
--- NOTE | 2019-07-14 17:23 | OP ---
Operative Report - Blank - Operative Report Date of Operation: 07/14/19 Note: RAÚL CRABTREE 1940 Date Of Surgery: 07/14/19 Aisha Alex MD Product Marketing Engineer: Steffany GAMA did help throughout the procedure with preparation of the hip, wound retraction, manipulation of the hip, and wound closure. Anesthesiologist: Steffany Kerr MD Anesthesia Type: Spinal Preoperative Diagnosis: Right severe degenerative osteoarthritis of the hip Postoperative Diagnosis: As above, Right Gluteus Medius Tendon Tear Procedure Performed: Right Total Hip Arthroplasty with primary repair gluteus medius tendon Complications: None Specimen: Femoral head and acetabular reamings sent to pathology. Hardware used: This is uncemented [place] total hip arthroplasty hardware for the femur a size 8 accolade II with 127 neck angle femoral component, for the acetabulum a size 56F trident II tritanium cluster hole shell, one 15 mm screw, for the insert a size 40F trident X3 polyethylene insert, and for the femoral head a size 40+4 LFIT metal V40 femoral head. Brief history/Indication: RAÚL CRABTREE was known in clinic and had a history of severe right hip pain. He failed conservative treatment with anti- inflammatories, pain pills, intra-articular injections and physical therapy. He elected to undergo right total hip arthroplasty due to continued pain and decreased quality of life. Radiographs showed severe end stage osteoarthritis of the hip with bone on bone contact. Informed consent was obtained from the patient. He understood the risks of surgery included but were not limited to: bleeding, infection, damage to nearby structures, intraoperative fracture, nerve palsy, failure of the hardware, early loosening, stiffness or loss of motion, dislocation, leg length discrepancy, anesthesia complications, stroke, heart attack, blood clot and . He wished to proceed. Intra-Operative findings: Intraoperatively the patient was noted to have severe loss of cartilage of the acetabulum and femoral head. Description of the Procedure: RAÚL CRABTREE was identified in the preanesthesia unit. His right hip was marked as the correct operative side. Informed consent was signed and placed in the chart. The patient was taken to the operating room and placed under anesthesia without complication. A donato catheter was placed. The patient was placed on the peg board with all bony prominences well padded. The right lower extremity was prepped and draped in the usual sterile fashion. Preoperative time -out was made to correctly identify the patient, side and site. Appropriate intraoperative antibiotics were given within one hour of incision. A standard posterior incision was made and carried sharply down to the lateral fascia. A new 10 blade was used to make an incision in the fascia in line with the skin incision. A charnley retractor was placed. The gluteus medius abductor tendon had a partial tear with proximal retraction. The piriformis and conjoined tendons were identified and elevated off the posterolateral femur using electrocautery. These were tagged with number 5 Ethibond. Next electrocautery was used to make a posterolateral capsular flap and this was tagged with number 5 Ethibonds. The hip was carefully dislocated. Lesser trochanter to the center of the femoral head was measured at 70 mm. The oscillating saw was used to make the femoral neck cut. The femoral head was carefully removed. The femur was retracted anteriorly and the acetabular retractors were placed. Long-handled knife was used to sharply remove any remaining labrum from the acetabular rim. The acetabulum was sequentially reamed up to a size 56. A bleeding subchondral bone bed was obtained. A trial liner was placed and had excellent fit and stability. A 56F trident II tritanium cup with a 15 mm screw was placed and had excellent stability with appropriate anteversion and abduction angle. A size 40F polyethylene liner was impacted into the acetabular shell. The liner was checked for stability and was stable. Next attention was turned to preparation of the femoral canal. A canal finder was used to enter the proximal femur. The femoral canal was sequentially broached up to a size 8 femoral broach trial. A trial neck and 40 + 4 trial femoral head was chosen. Lesser trochanter to center of the femoral head measurement was satisfactory. The hip was reduced and taken through a range of motion. The hip was stable in all positions with good soft tissue tension and appropriate leg lengths. The hip was dislocated and all trials were removed. The final implant chosen was a accolade II size 8 with 127 neck angle. This stem was impacted into the femoral canal without difficulty. The stem was stable with appropriate anteversion. The femoral head chosen was a 40 + 4 metal head. The head was impacted onto the femoral neck without difficulty. The final lesser trochanter to center of the femoral head measurement was satisfactory. The hip was reduced and taken through a range of motion. The hip was stable in all positions with good soft tissue tension and appropriate leg lengths. The hip was copiously irrigated with sterile saline. The previously tagged capsule and tendons were repaired to the posterolateral femur through two trochanteric drill holes. Number 5 ethibonds were used to primarily repair the torn abductor tendon. The lateral fascia layer was closed using number 1 vicryls. The rest of the incision was closed in a layered fashion using 0 and 2-0 vicryls. The skin was closed using 3-0 monocryl suture and Dermabond. Sterile adaptic, 4x4s and paper tape was used to cover the incision. The patients anesthesia was reversed without difficulty. He was taken to the PACU in stable condition. Intended weight-bearing will be as tolerated with posterior hip precautions.
[2019-07-14] MEDS: ceFAZolin 1 GM ADVAN(*) 1 GM in NS 0.9% 50 ML* 50 ML IVPB SCH (18:09)
[2019-07-14] MEDS: IRON PO SCH (18:10)
[2019-07-14] MEDS: Metoprolol Succinate XL TAB* 50 MG PO SCH (18:17)
[2019-07-14] MEDS: Docusate CAP* 100 MG PO SCH (20:30)
[2019-07-14] MEDS: Magnesium Hydroxide LIQ* 30 ML UDC PO SCH (20:30)
[2019-07-15] MEDS: Lactated Ringers 1000 ML Bag* 1,000 ML IV SCH (01:30)
[2019-07-15] MEDS: ceFAZolin 1 GM ADVAN(*) 1 GM in NS 0.9% 50 ML* 50 ML IVPB SCH ×2 (01:30→09:30)
[2019-07-15] MEDS: oxyCODONE/Acetamin 5/325 MG* TAB PO PRN ×3 (06:28→17:57)
[2019-07-15 06:56] LABS: Hematocrit 31 % (42-52); Hemoglobin 10.6 g/dL (14.0-18.0); Mean Platelet Volume 7.6 fL (7.4-10.4); Platelet Count 167 10^3/uL (150-450)
[2019-07-15 07:14] LABS: BUN/Creatinine Ratio 27.4 (8-20); Calcium 8.5 mg/dL (8.6-10.3); EGFR Non-African American 76.9 (>60); Potassium 4.3 mmol/L (3.5-5.0)
[2019-07-15] MEDS: Vitamin THERAPEUTIC TAB PO SCH (08:44)
[2019-07-15] MEDS: Valsartan TAB* 160 MG PO SCH (08:44)
[2019-07-15] MEDS: Ascorbic Acid TAB* 500 MG PO SCH (08:44)
[2019-07-15] MEDS: Cyanocobalamin TAB* 500 MCG PO SCH (08:45)
[2019-07-15] MEDS: Multivitamins/Minerals TAB PO SCH (08:45)
[2019-07-15] MEDS: CMCS:Dabigatran CAP(NF) 150 MG CAP PO SCH ×2 (08:46→19:48)
[2019-07-15] MEDS: Magnesium Hydroxide LIQ* 30 ML UDC PO SCH ×2 (08:47→19:45)
[2019-07-15] MEDS: amLODIPine TAB* 5 MG PO SCH (08:47)
[2019-07-15] MEDS: Docusate CAP* 100 MG PO SCH ×2 (08:47→19:45)
--- NOTE | 2019-07-15 08:56 | PN ---
Subjective Date of Service: 07/15/19 Interval History: No overnight events. He feels good this morning. Has no pain in his hip or elsewhere. Breathing is comfortable. Objective Active Medications: Acetaminophen (Tylenol Tab*) 650 mg PO Q8HR PRN PRN Reason: MILD PAIN or TEMP > 100.4 Amlodipine Besylate (Norvasc Tab*) 5 mg PO DAILY [facility] Last Admin: 07/15/19 08:47 Dose: 5 mg Ascorbic Acid (Vitamin C Tab*) 500 mg PO QAM [facility] Last Admin: 07/15/19 08:44 Dose: 500 mg Bisacodyl (Dulcolax Supp*) 10 mg GA DAILY PRN PRN Reason: CONSTIPATION Cyanocobalamin (Vitamin B12 Tab*) 1,000 mcg PO DAILY [facility] Last Admin: 07/15/19 08:45 Dose: 1,000 mcg Cyclobenzaprine HCl (Flexeril Tab*) 10 mg PO Q6H PRN PRN Reason: SPASMS Dabigatran (Pradaxa Cap(Nf)) 150 mg PO BID [facility] Last Admin: 07/15/19 08:46 Dose: 150 mg Diphenhydramine HCl (Benadryl Iv*) 25 mg IV Q6H PRN PRN Reason: PRURITIS Diphenhydramine HCl (Benadryl Po*) 25 mg PO Q6H PRN PRN Reason: PRURITIS Docusate Sodium (Colace Cap*) 100 mg PO BID [facility] Last Admin: 07/15/19 08:47 Dose: 100 mg Cefazolin Sodium 1 gm/ Sodium (Chloride) 50 mls @ 200 mls/hr IVPB Q8H [facility] Stop: 07/15/19 10:14 Last Admin: 07/15/19 01:30 Dose: 200 mls/hr Lactated Ringer's (Lactated Ringers 1000 Ml Bag*) 1,000 mls @ 100 mls/hr IV PER RATE [facility] Last Admin: 07/15/19 01:30 Dose: 100 mls/hr Lactulose (Lactulose*) 30 ml PO BID PRN PRN Reason: CONSTIPATION Magnesium Hydroxide (Milk Of Magnesia Liq*) 30 ml PO BID [facility] Last Admin: 07/15/19 08:47 Dose: 30 ml Magnesium Hydroxide (Milk Of Magnesia Liq*) 30 ml PO Q6H PRN PRN Reason: CONSTIPATION Metoprolol Succinate (Toprol Xl Tab*) 50 mg PO QPM [facility] Last Admin: 07/14/19 18:17 Dose: 50 mg Morphine Sulfate (Morphine Inj (Syringe))*) 2 mg IV Q4H PRN PRN Reason: Pain - Unrelieved Multivitamins (Theragran Tab*) 1 tab PO DAILY [facility] Last Admin: 07/15/19 08:44 Dose: 1 tab Multivitamins/Minerals (Theragran/Minerals Tab*) 1 tab PO QAM [facility] Last Admin: 07/15/19 08:45 Dose: 1 tab Non-Formulary Medication (Iron) 370 mg PO QPM [facility] Last Admin: 07/14/19 18:10 Dose: Not Given Ondansetron HCl (Zofran Inj*) 4 mg IV Q6H PRN PRN Reason: NAUSEA Ondansetron HCl (Zofran Odt Tab*) 4 mg PO Q6H PRN PRN Reason: NAUSEA Oxycodone HCl (Roxycodone Tab*) 10 mg PO Q4H PRN PRN Reason: Pain - Breakthrough Oxycodone/Acetaminophen (Percocet 5/325 Tab*) 1 tab PO Q4H PRN PRN Reason: PAIN - MODERATE Last Admin: 07/14/19 20:29 Dose: 1 tab Oxycodone/Acetaminophen (Percocet 5/325 Tab*) 2 tab PO Q4H PRN PRN Reason: PAIN - SEVERE Last Admin: 07/15/19 06:28 Dose: 2 tab Valsartan (Diovan Tab*) [facility] [place] Admin: 07/15/19 08:44 Dose: 160 mg Vital Signs - 8 hr 07/15/19 07/15/19 07/15/19 02:00 04:00 04:05 Temperature 98 F Pulse Rate 97 Respiratory 18 18 18 Rate Blood Pressure 128/76 (mmHg) O2 Sat by Pulse 93 96 93 Oximetry 07/15/19 07/15/19 07/15/19 06:00 06:28 07:29 Temperature 98.1 F Pulse Rate 90 Respiratory 18 18 16 Rate Blood Pressure 105/54 (mmHg) O2 Sat by Pulse 94 95 Oximetry 07/15/19 08:43 Temperature Pulse Rate Respiratory 18 Rate Blood Pressure (mmHg) O2 Sat by Pulse Oximetry Oxygen Devices in Use Now: None Appearance: alert, sitting up in chair, well appearing Eyes: No Scleral Icterus Ears/Nose/Mouth/Throat: NL Teeth, Lips, Gums Neck: NL Appearance and Movements; NL JVP Respiratory: Symmetrical Chest Expansion and Respiratory Effort Cardiovascular: - - irregularly irregular Abdominal: NL Sounds; No Tenderness; No Distention Lymphatic: No Cervical Adenopathy Extremities: - - varicose veins, chronic venous stasis changes, pulses 2+, left hip dressed Skin: No Rash or Ulcers Result Diagrams: 07/15/19 06:02 07/15/19 06:01 Assess/Plan/Problems-Billing Assessment: This is a 78 year old man with history of afib, osteoarthritis, NSVT, thoracic aortic aneurysm (4.1cm) who was admitted 07/14 for an elective left total hip arthroplasty. - Patient Problems (1) Status post total replacement of left hip Current Visit: Yes Status: Acute Code(s): Z96.642 - PRESENCE OF LEFT ARTIFICIAL HIP JOINT SNOMED Code(s): 691411042151 Comment: POD #1 (2) Atrial fibrillation Current Visit: Yes Status: Acute Code(s): I48.91 - UNSPECIFIED ATRIAL FIBRILLATION SNOMED Code(s): 62347059 Comment: continue pradaxa (3) Thoracic aortic aneurysm Current Visit: Yes Status: Acute Code(s): I71.2 - THORACIC AORTIC ANEURYSM, WITHOUT RUPTURE SNOMED Code(s): 184227217 Comment: 4.1 cm, followed by [facility] (4) HTN (hypertension) Current Visit: Yes Status: Acute Code(s): I10 - ESSENTIAL (PRIMARY) HYPERTENSION SNOMED Code(s): 50184641 (5) NSVT (nonsustained ventricular tachycardia) Current Visit: Yes Status: Acute Code(s): I47.2 - VENTRICULAR TACHYCARDIA SNOMED Code(s): 147614796 Comment: continue toprol (6) Snoring Current Visit: Yes Status: Acute Code(s): R06.83 - SNORING SNOMED Code(s) : 43340947 Comment: there is no documentation of desaturation overnight while sleeping, but based on his description and his stopbang score, he should have an outpatient sleep study and he udnerstands this recommendation
--- NOTE | 2019-07-15 14:33 | PN ---
Progress Note - Progress Note Date of Service: 07/15/19 SOAP: Subjective: [] Pt seen OOB in chair. He feels well without CP, SOB, dizziness or nausea. Objective: []Gen: Appears well, NAD RLE: R hip dressing CDI without erythema. Thigh soft. DF/PF intact, DP2+. sensation intact to light touch distally. Calves supple and nontender without erythema, edema or palpable cords Assessment: []POD 1 sp right total hip arthroplasty Plan: []WBAT PT/OT Home dose of pradaxa for a fib/ dvt prophylaxis Vital Signs Temp 99.2 F 07/15/19 11:41 Pulse 70 07/15/19 11:41 Resp 16 07/15/19 12:00 BP 100/73 07/15/19 11:41 Pulse Ox 96 07/15/19 11:41 Intake & Output 07/14/19 07/15/19 07/15/19 18:59 06:59 18:59 Intake Total 1225 1362 1305 Output Total 300 650 Balance 120 234 2077 Weight 267 lb Intake: IV Fluids 9597 994 6963 ABX - CEFAZOLIN 115 LR 1225 990 990 IVPB 52 ABX - CEFAZOLIN 52 Oral 320 200 Output: Valdovinos 300 650 Other: Estimated Void Medium # Bowel Movements 0 Laboratory Last Values Hgb 10.6 g/dL (14.0-18.0) L 07/15/19 06:02 Hct 31 % (42-52) L 07/15/19 06:02 Plt Count 167 10^3/uL (150-450) 07/15/19 06:02 MPV 7.6 fL (7.4-10.4) 07/15/19 06:02 INR (Anticoag Therapy) 0.98 (0.82-1.09) 07/14/19 08:15 APTT 33.2 seconds (26.0-38.0) 07/14/19 08:15 Sodium 139 mmol/L (135-145) 07/15/19 06:01 Potassium 4.3 mmol/L (3.5-5.0) 07/15/19 06:01 Chloride 106 mmol/L (101-111) 07/15/19 06:01 Carbon Dioxide 28 mmol/L (22-32) 07/15/19 06:01 Anion Gap 5 mmol/L (2-11) 07/15/19 06:01 BUN 26 mg/dL (6-24) H 07/15/19 06:01 Creatinine 0.95 mg/dL (0.67-1.17) 07/15/19 06:01 Est GFR ( Amer) 93.0 (>60) 07/15/19 06:01 Est GFR (Non-Af Amer) 76.9 (>60) 07/15/19 06:01 BUN/Creatinine Ratio 27.4 (8-20) H 07/15/19 06:01 Glucose 149 mg/dL (70-100) H 07/15/19 06:01 Calcium 8.5 mg/dL (8.6-10.3) L 07/15/19 06:01
[2019-07-15] MEDS: IRON PO SCH (17:43)
[2019-07-15] MEDS: Metoprolol Succinate XL TAB* 50 MG PO SCH (17:57)
[2019-07-16] MEDS: oxyCODONE/Acetamin 5/325 MG* TAB PO PRN ×2 (03:16→10:12)
[2019-07-16 05:13] LABS: Hematocrit 30 % (42-52); Hemoglobin 10.2 g/dL (14.0-18.0); Mean Platelet Volume 7.9 fL (7.4-10.4); Platelet Count 153 10^3/uL (150-450)
[2019-07-16] MEDS: oxyCODONE TAB* 5 MG TAB PO PRN ×2 (05:52→13:03)
[2019-07-16] MEDS: CMCS:Dabigatran CAP(NF) 150 MG CAP PO SCH (10:10)
[2019-07-16] MEDS: Cyanocobalamin TAB* 500 MCG PO SCH (10:10)
[2019-07-16] MEDS: Valsartan TAB* 160 MG PO SCH (10:11)
[2019-07-16] MEDS: Multivitamins/Minerals TAB PO SCH (10:11)
[2019-07-16] MEDS: Vitamin THERAPEUTIC TAB PO SCH (10:11)
[2019-07-16] MEDS: Magnesium Hydroxide LIQ* 30 ML UDC PO SCH (10:11)
[2019-07-16] MEDS: amLODIPine TAB* 5 MG PO SCH (10:11)
[2019-07-16] MEDS: Ascorbic Acid TAB* 500 MG PO SCH (10:12)
[2019-07-16] MEDS: Docusate CAP* 100 MG PO SCH (10:12)
[2019-07-16 11:51] VITALS: BP 116/60
--- NOTE | 2019-07-16 12:15 | PN ---
Progress Note - Progress Note Date of Service: 07/16/19 SOAP: Subjective: []Pt seen at bedside. He feels well and desires DC home. Denies CP, SOB, dizziness, nausea. Seen by medicine, stable for DC. Objective: []Gen: Appears well, NAD RLE: R hip dressing changed incision CDI without erythema. Thigh soft. DF/PF intact, DP2+. sensation intact to light touch distally. Calves supple and nontender without erythema, edema or palpable cords Assessment: []POD 2 sp right total hip arthroplasty Plan: []WBAT PT/OT Home dose of pradaxa for a fib/ dvt prophylaxis Vital Signs Temp 99.9 F 07/16/19 11:50 Pulse 109 07/16/19 11:50 Resp 16 07/16/19 11:50 BP 116/60 07/16/19 11:50 Pulse Ox 96 07/16/19 11:50 Intake & Output 07/15/19 07/16/19 07/16/19 18:59 06:59 18:59 Intake Total 1305 620 240 Output Total 300 250 Balance 1005 370 240 Intake: IV Fluids 1105 ABX - CEFAZOLIN 115 LR 990 Oral 200 620 240 Output: Urine 300 250 Other: Estimated Void Medium Estimated Stool Amount Small Laboratory Last Values Hgb 10.2 g/dL (14.0-18.0) L 07/16/19 04:30 Hct 30 % (42-52) L 07/16/19 04:30 Plt Count 153 10^3/uL (150-450) 07/16/19 04:30 MPV 7.9 fL (7.4-10.4) 07/16/19 04:30 INR (Anticoag Therapy) 0.98 (0.82-1.09) 07/14/19 08:15 APTT 33.2 seconds (26.0-38.0) 07/14/19 08:15 Sodium 139 mmol/L (135-145) 07/15/19 06:01 Potassium 4.3 mmol/L (3.5-5.0) 07/15/19 06:01 Chloride 106 mmol/L (101-111) 07/15/19 06:01 Carbon Dioxide 28 mmol/L (22-32) 07/15/19 06:01 Anion Gap 5 mmol/L (2-11) 07/15/19 06:01 BUN 26 mg/dL (6-24) H 07/15/19 06:01 Creatinine 0.95 mg/dL (0.67-1.17) 07/15/19 06:01 Est GFR ( Amer) 93.0 (>60) 07/15/19 06:01 Est GFR (Non-Af Amer) 76.9 (>60) 07/15/19 06:01 BUN/Creatinine Ratio 27.4 (8-20) H 07/15/19 06:01 Glucose 149 mg/dL (70-100) H 07/15/19 06:01 Calcium 8.5 mg/dL (8.6-10.3) L 07/15/19 06:01
--- NOTE | 2019-07-16 12:23 | DS ---
Orthopedic Discharge Summary - Discharge Summary Date of Admission:07/14/19 Date of Discharge: 07/16/19 Date of Surgery: 07/14/19 Attending Orthopedic Provider: Dr Alex Pre-operative Diagnosis: Right hip osteoarthritis Operative Procedure: right total hip replacement Disposition of Patient: home with vns Condition of Patient: stable History: RAÚL CRABTREE is a 78 year old M with years of increasingly severe right hip pain. Patient has failed conservative management and has elected to undergo a right total hip replacement Hospital Course: RAÚL was admitted to [facility] on 07/14/19. Patient underwent a right total hip replacement without complication followed by a brief recovery in PACU and transfer to the Short Stay Surgical Unit in stable condition. Our hospitalist service, physical therapy and occupational therapy also participated in this patients care. Post-op day 1: patient was alert and in no acute distress. Dressing was clean, dry and intact. Operative extremity dorsiflexion and plantarflexion intact, sensation intact to light touch distally, DP2+. Post-op day two: dressing was changed, incision was clean , dry and intact. Patient was deemed to be medically and orthopedically stable for discharge. Physical therapy goals were met. Home Medications Medication Instructions Recorded Confirmed Type Dabigatran CAP(NF) [Pradaxa 150 mg PO BID 02/21/15 07/14/19 History CAP(NF)] Acetaminophen [Tylenol Extra 1 tab PO QAM PRN 07/06/19 07/14/19 History Strength] Amlodipine Bes/Olmesartan Med 1 tab PO QAM 07/06/19 07/14/19 History [Amlodipine-Olmesartan 5-20 mg] Ascorbic Acid [Vitamin C] 500 mg PO QAM 07/06/19 07/14/19 History Cyanocobalamin TAB* [Vitamin B12 1,000 mcg PO DAILY 07/06/19 07/14/19 History TAB*] Metoprolol Succinate 50 mg PO QPM 07/06/19 07/14/19 History Multivit-Min/FA/Lycopen/Lutein 1 tab PO QAM 07/06/19 07/14/19 History [Centrum Silver Men Tablet] Iron 370 mg PO QPM 07/14/19 07/14/19 History Acetaminophen TAB* [Tylenol TAB*] 650 mg PO Q8HR PRN tab 07/16/19 Rx Docusate CAP* [Colace Cap*] 100 mg PO BID #90 cap 07/16/19 Rx oxyCODONE/Acetamin 5/325 MG* 1 tab PO Q4H PRN #0 tab MDD 10 07/16/19 Rx [Percocet 5/325 TAB*] oxyCODONE/Acetamin 5/325 MG* 2 tab PO Q4H PRN #70 tab MDD 10 07/16/19 Rx [Percocet 5/325 TAB*] Discharge Instructions following Orthopedic Surgery: Activity: * Weight Bearing as tolerated * Continue physical therapy and occupational therapy exercises as shown * Home PT Wound care: * OK to shower on post-op day 3, no bathing, swimming, or submerging wound. * Use gentle soap, pat dry. Cover with gauze, LATOYA wrap or tape. * Visiting home nurse to do wound checks. Call Orthopedic office for: * Increased drainage * Redness * Increased pain * Fever Go to ER with shortness of breath or chest pain. Diet: * Regular diet * Increase fluids and fiber to prevent constipation. * Continue to use stool softeners, call office if no bowel motion within 48 hours. Medications See Home Medication List in your packet for medications that you should take after discharge. DVT Prophylaxis: Eliquis Dosin.5 mg, 1 tab every 12 hours x 30 days. Pain Control: Percocet Dosin/325 mg 1-2 tabs by mouth every 4-6 hours as needed for pain. Maximum of 10 tabs per day. Celebrex Dosin mg twice a day Please note that Percocet contains Tylenol (acetaminophen). Maximum daily dose of Tylenol is 4000 mg from all sources. Antibiotics are required prior to any dental work. FOLLOW UP: Follow up with [kenzie] Within 10-14 days, call for appointment Please call our office with any questions or concerns ([phone]) [facility]
[2019-07-16] MEDS ORDERED: Bisacodyl SUPP* 10 MG SUPP PR PRN (13:04)
[2019-07-22] MEDS ORDERED: diPHENhydraMINE IV* 50 MG/ML 1 ml VIAL (BENADRYL) ONE (16:04)
== END 2019-07-16 13:05 | disposition home health service (06) | DRG 470 ==
LOC: AA 07:21 → SSU 13:04
PROVIDERS: ADMIT Orthopaedic Surgery Adult Reconstructive Orthopaedic Surgery; ATTEND Orthopaedic Surgery Adult Reconstructive Orthopaedic Surgery
PROC: 0SR902A Replacement of Right Hip Joint with Metal on Polyethylene Synthetic Substitute, Uncemented, Open Approach (ICD-10-PCS; principal; 2019-07-14 09:30)
DX: M16.11 Unilateral primary osteoarthritis, right hip (principal); I48.19 Other persistent atrial fibrillation; I47.2 Ventricular tachycardia; G89.29 Other chronic pain; I10 Essential (primary) hypertension; E78.5 Hyperlipidemia, unspecified; M17.12 Unilateral primary osteoarthritis, left knee; Z96.651 Presence of right artificial knee joint; R73.01 Impaired fasting glucose; R06.83 Snoring; I71.2 Thoracic aortic aneurysm, without rupture; I34.0 Nonrheumatic mitral (valve) insufficiency; E66.9 Obesity, unspecified; Z88.8 Allergy status to other drugs, medicaments and biological substances; Z72.89 Other problems related to lifestyle; Z87.891 Personal history of nicotine dependence; Z79.01 Long term (current) use of anticoagulants; Z68.36 Body mass index [BMI] 36.0-36.9, adult; Z82.3 Family history of stroke
CPT/HCPCS: 36415; 72170; 80048; 85014; 85018; 85049; 85610; 85730; 88304; 88311; 93005; A9270-GY; C1713; C1776; G8978-GP-CM; G8979-GP-CI; J0690; J1200; J1885; J2250; J2704; J2795; J3010; J3490

== ENCOUNTER 2024-10-23 08:09 | Observation (INO) ==
[~2024-10-23 08:09] MED LIST changes: -Buffered Lidocaine 1% SYRIN* 1 ML/SYRINGE INTRADERM ONE; -Lactated Ringers 1000 ML Bag* 1,000 ML IV SCH; +Metoclopramide 5 MG/ML VIAL (10 mg) IV PRN; +NS 0.45% 1000 ml BAG 1,000 ML IV SCH; +Naloxone 0.4 mg VIAL 0.4 mg/ml 1 ml VIAL IV PRN; +Ondansetron 4 mg VIAL 2 MG/ML 2 ml VIAL IV PRN; +fentaNYL 100 mcg/2 ml 50 MCG/ML VIAL IV PRN
[2024-10-23] MEDS ORDERED: Phenylephrine IV 10 MG/ML 1 ml VIAL ONE (08:14)
[2024-10-23] MEDS ORDERED: ceFAZolin 2 GM PREMIX 2 GM/50 ML BAG ONE (08:24)
[2024-10-23] MEDS ORDERED: Tranexamic Acid 1 GM/100ML BAG 2,000 MG/200 ML BAG IV ONE (08:24)
[2024-10-23] MEDS ORDERED: ceFAZolin 1 GM in Dextrose 1 GM/50 ML BAG ONE (08:24)
[2024-10-23 08:53] LABS: Rapid COVID-19 Molecular Undetected (Undetected)
[2024-10-23] MEDS ORDERED: Midazolam 2 mg/2 ml VIAL 1 mg/ml 2 ml VIAL (2 mg) ONE (09:01)
[2024-10-23] MEDS ORDERED: ROPIVACAINE 5 MG/ML 30 ML BTL (0.5%) ONE ×2 (09:01→09:28)
[2024-10-23] MEDS ORDERED: Dexamethasone IV 4 MG/ML VIAL 1 ml VIAL ONE ×2 (09:01→10:09)
[2024-10-23] MEDS ORDERED: Ondansetron ODT 4 mg TAB 4 MG TAB PO PRN (09:51)
[2024-10-23] MEDS ORDERED: Morphine 2 MG/ML SYRINGE IV PRN (09:51)
[2024-10-23] MEDS ORDERED: Lactulose 30 ml UDC PO PRN (09:51)
[2024-10-23] MEDS ORDERED: Calcium Carb (TUMS) 500 mg CHEW TAB PO PRN (09:51)
[2024-10-23] MEDS ORDERED: Magnesium Hydroxide LIQ 30 ML UDC PO PRN (09:51)
[2024-10-23] MEDS ORDERED: Ondansetron 4 mg VIAL 2 MG/ML 2 ml VIAL IV PRN (09:51)
[2024-10-23] MEDS ORDERED: fentaNYL 100 mcg/2 ml 50 MCG/ML VIAL ONE (10:07)
[2024-10-23] MEDS ORDERED: Ondansetron 4 mg VIAL 2 MG/ML 2 ml VIAL ONE (10:09)
[2024-10-23] MEDS: Acetaminophen IV 1 GM/100ML 1,000 MG/100 ML BAG IV ONE (14:01)
[2024-10-23] MEDS: Buffered Lidocaine 1% SYRIN 1 ml INTRADERM ONE (14:01)
[2024-10-23] MEDS: Lactated Ringers 1000 ml BAG 1,000 ML IV SCH ×2 (14:02→16:31)
[2024-10-23] MEDS: Scopolamine 1 mg/72hr PATCH TRANSDERM ONE (14:02)
[2024-10-23] MEDS: ceFAZolin 2 GM PREMIX 2 GM/50 ML BAG IV SCH (20:39)
[2024-10-23] MEDS: Magnesium Hydroxide LIQ 30 ML UDC PO SCH (20:40)
[2024-10-24 05:41] LABS: Hematocrit 36.3 % (38-53); Hemoglobin 12.3 g/dL (13.2-16.3); Mean Platelet Volume 7.6 fL (7.5-11.2); Platelet Count 188 10^3/uL (150-450)
[2024-10-24 06:28] LABS: Calcium 8.5 mg/dL (8.6-10.3); Creatinine, Serum 1.04 mg/dL (0.67-1.17); Potassium 4.7 mmol/L (3.5-5.0); eGFR CKD-EPI 71.7 (>60)
[2024-10-24] MEDS: Vitamin THERAPEUTIC TAB PO SCH (08:21)
[2024-10-24] MEDS ORDERED: Aspirin EC 81 mg TAB.EC (enteric coated) PO SCH (09:00)
[2024-10-24 10:30] VITALS: BP 128/79
== END 2024-10-24 13:20 | disposition home or self-care (01) ==
LOC: SSU 08:09 → OR 08:09
PROVIDERS: ADMIT Orthopaedic Surgery Adult Reconstructive Orthopaedic Surgery; ATTEND Orthopaedic Surgery Adult Reconstructive Orthopaedic Surgery